=== PATIENT | male | born 1965 | race Caucasian/White ===

== ENCOUNTER → 2017-02-21 | Outpatient (CLI) | payer OTHER | LOC: KOH-I 02-20 11:15 | DX: M54.12 Radiculopathy, cervical region (principal); M25.511 Pain in right shoulder; S14.105A Unspecified injury at C5 level of cervical spinal cord, initial encounter; M43.12 Spondylolisthesis, cervical region; M19.011 Primary osteoarthritis, right shoulder | CPT/HCPCS: 72125; 73221 ==